=== PATIENT | female | born 1960 | race Two or more races ===

== ENCOUNTER 2018-03-12 06:36 | Day surgery (SDC) | payer OTHER, MEDICAID ==
[2018-03-12] MEDS: LIDOCAINE 4% (MPF) 5 ML INJ (07:43)
[2018-03-12] MEDS ORDERED: TETRACAINE 0.5% 4 ML OPH (07:43)
[2018-03-12] MEDS ORDERED: NEOMYC/POLYMYX/BACIT 3.5GM OPH OINT (07:43)
[2018-03-12] MEDS ORDERED: EPINEPHrine 1 MG INJ (07:44)
[2018-03-12] MEDS: PHENYLephrine 2.5% 15 ML OPH RIGHT EYE (07:46)
[2018-03-12] MEDS: CYCLOPENTOLATE 1% 2 ML OPH RIGHT EYE (07:47)
[2018-03-12] MEDS: TROPICAMIDE 1% 3 ML OPH RIGHT EYE (07:47)
[2018-03-12] MEDS: PROPARACAINE 0.5% 15 ML OPH RIGHT EYE (07:49)
[2018-03-12] MEDS ORDERED: MIDAZOLAM 1 MG/ML 2 ML INJ (08:14)
[2018-03-12] MEDS ORDERED: METOCLOPRAMIDE 10 MG INJ IV (09:00)
[2018-03-12] MEDS ORDERED: FENTAnyl 50 MCG/ML VIAL IV (09:00)
[2018-03-12] MEDS ORDERED: LABETALOL HCL 20MG INJ IV (09:00)
[2018-03-12] MEDS ORDERED: hydrALAzine 20 MG INJ IV (09:00)
[2018-03-12] MEDS ORDERED: ONDANSETRON 4 MG INJ IV (09:00)
[2018-03-12] MEDS ORDERED: TRYPAN BLUE 0.5 ML SYG IO (09:06)
[2018-03-12] MEDS ORDERED: MOXIFLOXACIN 0.5% 3 ML OPH (09:28)
== END 2018-03-12 10:55 | disposition home or self-care (01) ==
LOC: SDS 06:36
DX: H25.21 Age-related cataract, morgagnian type, right eye (principal); E11.319 Type 2 diabetes mellitus with unspecified diabetic retinopathy without macular edema; I10 Essential (primary) hypertension; E78.5 Hyperlipidemia, unspecified
CPT/HCPCS: 66984; 82962